=== PATIENT | female | born 1985 | race Caucasian/White ===

== ENCOUNTER 2016-09-05 01:01 | Emergency (ER) | payer MEDICAID ==
[2012-08-05 09:41] VITALS: BMI 34.9
== END 2016-09-05 02:55 | disposition home or self-care (01) ==
LOC: D.ER 01:01
DX: T78.3XXA Angioneurotic edema, initial encounter (principal); I10 Essential (primary) hypertension; F17.200 Nicotine dependence, unspecified, uncomplicated